=== PATIENT | female | born 1960 ===

== ENCOUNTER 2018-02-15 11:33 | Emergency (ER) | payer OTHER ==
[2018-02-15 11:41] VITALS: RESP 18; O2SAT 100
--- NOTE | 2018-02-15 12:33 | RAD ---
PROCEDURE: Left Foot Radiographs. HISTORY: pain to proximal 1st metatarsal COMPARISON: None. FINDINGS: BONES: Bone alignment and mineralization are normal. There is no acute displaced fracture or bone destruction. There is a prominent plantar calcaneal spur. There is a dorsal calcaneal enthesophyte. JOINTS: Normal. There is an os navicularis. SOFT TISSUES: Normal. OTHER FINDINGS: None. No acute fracture or dislocation IMPRESSION: 1. Os navicularis. 2. No acute fracture or dislocation.
--- NOTE | 2018-02-15 13:10 | C.PDOC ---
History Of Present Illness 57 year old female presents to the ED c/o pain to the medial aspect of her left foot that started 3 days ago. Patient reports she started using new shoes after which she noticed pain and swelling to her left foot. Patient denies fall, injury, trauma, weakness, numbness. Time Seen by Provider: 02/15/18 11:47 Chief Complaint (Nursing): Lower Extremity Problem/Injury History Per: Patient History/Exam Limitations: no limitations Onset/Duration Of Symptoms: Days Current Symptoms Are (Timing): Still Present Recent travel outside of the [place]: No Additional History Per: Patient - Ankle/Foot Description Of Injury: Other Currently Unable To: Bend Or Move Past Medical History Reviewed: Historical Data, Nursing Documentation, Vital Signs Vital Signs: Last Vital Signs Temp 97.4 F L 02/15/18 13:30 Pulse 60 02/15/18 13:30 Resp 18 02/15/18 13:30 BP 123/83 02/15/18 13:30 Pulse Ox 100 02/15/18 14:17 - Medical History PMH: No Chronic Diseases Surgical History: No Surg Hx Family History: States: Unknown Family Hx - Social History Hx Tobacco Use: Yes Hx Alcohol Use: No Hx Substance Use: No - Immunization History Hx Tetanus Toxoid Vaccination: No Hx Influenza Vaccination: No Hx Pneumococcal Vaccination: No Review Of Systems Constitutional: Negative for: Fever, Chills Cardiovascular: Negative for: Chest Pain Respiratory: Negative for: Shortness of Breath Gastrointestinal: Negative for: Abdominal Pain Musculoskeletal: Positive for: Foot Pain Skin: Negative for: Rash Neurological: Negative for: Weakness, Numbness Physical Exam - Physical Exam Appears: Non-toxic, No Acute Distress Skin: Warm, Dry Extremity: Normal ROM, Tenderness (proximal 1st metatarsal left foot, medial aspect foot. ), Capillary Refill (< 2 seconds), No Swelling, Other (no warmth, erythema or swelling) Pulses: Left Dorsalis Pedis: Normal, Right Dorsalis Pedis: Normal Neurological/Psych: Oriented x3, Normal Motor, Normal Sensation Gait: Steady ED Course And Treatment O2 Sat by Pulse Oximetry: 100 (ON RA) Pulse Ox Interpretation: Normal - Other Rad foot left X-Ray: Read By Radiologist Interpretation: IMPRESSION: 1. Os navicularis. 2. No acute fracture or dislocation. Medical Decision Making Medical Decision Making: Impression: left foot pain Plan: * Left foot X-Ray * Motrin 600 mg PO * Shahab bandage no fx on xray. d/c with nsaids,. shahab bandage and podiatry f/u Disposition Counseled Patient/Family Regarding: Studies Performed, Diagnosis, Need For Followup - Disposition Referrals: Podiatry Clinic [Outside] Disposition: HOME/ ROUTINE Disposition Time: 13:09 Condition: GOOD Additional Instructions: Use tee venda as para soporte ,. Eliminar a la hora de acostarse. Ibuprofeno para el dolor Use zapatos de apoyo. COLD se comprime a pie 2-3 veces al da carolynn 20 minutos. Seguimiento con podologa. Wear shahab bandage for support,. Remove at bedtime. Ibuprofen for pain. Wear supportive shoes. COld compresses to foot 2-3 times a day for 20 minutes. Follow up with podiatry. 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 - Scribe Statement The provider has reviewed the documentation as recorded by the Scribe Douglas Gutierrez All medical record entries made by the Scribe were at my direction and personally dictated by me. I have reviewed the chart and agree that the record accurately reflects my personal performance of the history, physical exam, medical decision making, and the department course for this patient. I have also personally directed, reviewed, and agree with the discharge instructions and disposition.
[2018-02-15 13:31] VITALS: BP 123/83; PULSE 60; TEMP 97.4
== END 2018-02-15 13:31 | disposition home or self-care (01) ==
LOC: C.ER 11:33
DX: S93.602A Unspecified sprain of left foot, initial encounter (principal); X58.XXXA Exposure to other specified factors, initial encounter

== ENCOUNTER 2018-06-13 12:31 | Emergency (ER) | payer OTHER ==
[2018-06-13 12:38] VITALS: RESP 16; TEMP 98.2; O2SAT 98
--- NOTE | 2018-06-13 13:06 | C.PDOC ---
History Of Present Illness 58 y/o female present to the ER complaining of left ankle pain for one week. She explains that pain began after a lot of walking. She denies experiencing a fall or trauma of any sort. According to the patient, she did not take any pain medication at home. The patient denies any numbness, tingling or radiating pain. L ANKLE PAIN X 1 WEEK. ONSET AFTER ALOT OF WALKING. NO TRAUMA. NO PAIN MEDS TRIED EXAM NAD EXT LLE: +MILD SWELL MED MALL W NONTEND; AROM WO DIFF; SKIN INTACT NO LESIONS Time Seen by Provider: 06/13/18 12:47 Chief Complaint (Nursing): Lower Extremity Problem/Injury History Per: Patient History/Exam Limitations: no limitations Onset/Duration Of Symptoms: Days Recent travel outside of the [place]: No - Ankle/Foot Alleviating Factor(s): denies: Ice Therapy, OTC Pain Medication Past Medical History Reviewed: Historical Data, Nursing Documentation, Vital Signs Vital Signs: Last Vital Signs Temp 98.2 F 06/13/18 12:34 Pulse 82 06/13/18 14:10 Resp 16 06/13/18 14:10 BP 128/76 06/13/18 14:10 Pulse Ox 98 06/13/18 14:10 - Medical History PMH: No Chronic Diseases Surgical History: Family History: States: Unknown Family Hx - Social History Hx Tobacco Use: Yes Hx Alcohol Use: No Hx Substance Use: No - Immunization History Hx Tetanus Toxoid Vaccination: No Hx Influenza Vaccination: No Hx Pneumococcal Vaccination: No Review Of Systems Except As Marked, All Systems Reviewed And Found Negative. Constitutional: Negative for: Fever Skin: Negative for: Bruising Neurological: Negative for: Weakness, Numbness, Other (tingling ) Physical Exam - Physical Exam Appears: Well, Non-toxic, No Acute Distress Skin: Normal Color, Warm, No Rash, No Other (lesions) Head: Atraumatic, Normacephalic Eye(s): bilateral: Normal Inspection, PERRL, EOMI Ear(s): Bilateral: Normal Nose: Normal Oral Mucosa: Moist Neck: Normal ROM Chest: Symmetrical Cardiovascular: Rhythm Regular, No Murmur Respiratory: Normal Breath Sounds, No Rales, No Rhonchi, No Wheezing, Other ( NARD) Gastrointestinal/Abdominal: Normal Exam, Bowel Sounds, Soft, No Tenderness Extremity: Normal ROM, No Tenderness, Swelling ( +MILD SWELL MED MALLEOUS ) Extremity: Bilateral: Atraumatic, Normal ROM Pulses: Left Dorsalis Pedis: Normal, Right Dorsalis Pedis: Normal Neurological/Psych: Oriented x3 Gait: Steady ED Course And Treatment O2 Sat by Pulse Oximetry: 98 (RA) Pulse Ox Interpretation: Normal Progress Note: Impression: 58 y/o female with left ankle pain. Plan: --Motrin 600 mg PO. --Tylenol 650 mg PO. 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 - Scribe Statement The provider has reviewed the documentation as recorded by the Scribe (Debi Bright) Provider Attestation: All medical record entries made by the Scribe were at my direction and personally dictated by me. I have reviewed the chart and agree that the record accurately reflects my personal performance of the history, physical exam, medical decision making, and the department course for this patient. I have also personally directed, reviewed, and agree with the discharge instructions and disposition.
[2018-06-13 14:10] VITALS: BP 128/76; PULSE 82
--- NOTE | 2018-06-13 14:47 | RAD ---
Date of service: 06/13/2018 PROCEDURE: Left Ankle Radiographs. HISTORY: PAIN COMPARISON: None FINDINGS: BONES: No acute fracture or destructive bony lesion identified. JOINTS: Normal. No osteoarthritis. Ankle mortise maintained. Talar dome intact SOFT TISSUES: Small plantar calcaneal spur noted. OTHER FINDINGS: None. IMPRESSION: Small plantar calcaneal spur. No acute findings.
== END 2018-06-13 14:10 | disposition home or self-care (01) ==
LOC: C.ER 12:31
DX: S93.402A Sprain of unspecified ligament of left ankle, initial encounter (principal); X50.0XXA Overexertion from strenuous movement or load, initial encounter; Y93.01 Activity, walking, marching and hiking; Y92.9 Unspecified place or not applicable

== ENCOUNTER 2018-10-20 13:30 | Emergency (ER) | payer OTHER ==
--- NOTE | 2018-10-20 13:56 | C.PDOC ---
History Of Present Illness 58 y/o female presents to the ED complaining of pain to her left ankle, ongoing for several days. Patient states she walks a lot, which worsens the pain. Denies any recent fall or trauma. Patient also reports worsening swelling. States she was taking Motrin and Tylenol but ran out. Otherwise denies any numbness, paresthesias, or focal weakness. Time Seen by Provider: 10/20/18 13:40 Chief Complaint (Nursing): Lower Extremity Problem/Injury History Per: Family (interpreting for patient) History/Exam Limitations: no limitations Onset/Duration Of Symptoms: Days Current Symptoms Are (Timing): Still Present Past Medical History Reviewed: Historical Data, Nursing Documentation, Vital Signs Vital Signs: Last Vital Signs Temp 97.8 F 10/20/18 13:32 Pulse 83 10/20/18 13:32 Resp 20 10/20/18 13:32 BP 117/78 10/20/18 13:32 Pulse Ox 99 10/20/18 13:32 Surgical History: Family History: States: Unknown Family Hx - Social History Hx Tobacco Use: Yes Hx Alcohol Use: No Hx Substance Use: No - Immunization History Hx Tetanus Toxoid Vaccination: No Hx Influenza Vaccination: No Hx Pneumococcal Vaccination: No Review Of Systems Constitutional: Negative for: Fever Cardiovascular: Negative for: Chest Pain Respiratory: Negative for: Shortness of Breath Gastrointestinal: Negative for: Abdominal Pain Musculoskeletal: Positive for: Other (Left ankle pain). Negative for: Foot Pain Skin: Negative for: Rash, Lesions, Bruising Neurological: Negative for: Weakness, Numbness Physical Exam - Physical Exam Appears: Well, Non-toxic, No Acute Distress Skin: Warm, Dry, No Rash, No Ecchymosis Extremity: Normal ROM, Tenderness (to the lateral and medial malleoli of left ankle; No tenderness of the foot), No Swelling, Other (No erythema or increased warmth, skin intact) Pulses: Left Dorsalis Pedis: Normal, Right Dorsalis Pedis: Normal Neurological/Psych: Oriented x3, Normal Motor, Normal Sensation Gait: Steady ED Course And Treatment O2 Sat by Pulse Oximetry: 99 (RA) Pulse Ox Interpretation: Normal - Other Rad Left ankle x-ray X-Ray: Interpreted by Me, Viewed By Me Interpretation: (-) acute fracture or dislocation Medical Decision Making Medical Decision Making: Impression: Left ankle pain Plan: --Left ankle x-ray --800 mg PO Motrin Pt re-eval. States feeling much better. Given RX for Motrin. Understands and agrees to immediately return to the ER if having increased swelling, pain, numbness/tingling, change in color or sensation, or any other concerni ng/worsening, new or continued symptoms. Understands and agrees to remove case/splint if having any of these sxs and see ortho/ER quickly. Pt agrees to make appt with ortho for 1-2 days from now. States will call [facility] for appointments. Disposition Counseled Patient/Family Regarding: Studies Performed, Diagnosis, Need For Followup - Disposition Referrals: [facility] [Outside] [facility] [Outside] Disposition: HOME/ ROUTINE Disposition Time: 14:40 Condition: IMPROVED Additional Instructions: JACQUELYN CUMMINGS, thank you for letting us take care of you today. Your provider was Tatum Kothari MD and you were treated for LT KNEE PAIN/SWOLLEN. The emergency medical care you received today was directed at your acute symptoms. If you were prescribed any medication, please fill it and take as directed. It may take several days for your symptoms to resolve. Return to the Emergency Department if your symptoms worsen, do not improve, or if you have any other problems. Please contact your doctor or call one of the physicians/clinics you have been referred to that are listed on the Patient Visit Information form that is included in your discharge packet. Bring any paperwork you were given at discharge with you along with any medications you are taking to your follow up visit. Our treatment cannot replace ongoing medical care by a primary care provider outside of the emergency department. [facility] care today. If you had an X-Ray or CT scan: A Radiologist will review the ED reading if any change in treatment is needed we will contact you. If you had a blood, urine, or wound culture: It will take several days for the results, if any change in treatment is needed we will contact you. If you had an STI test: It will take 48 hours for the results. Please call after 1 week if you have not heard back. Prescriptions: Ibuprofen [Motrin Tab] 800 mg PO TID PRN #30 tab PRN Reason: Pain, Moderate (4-7) Instructions: Chronic Pain (DC), Joint Pain Forms: [facility] (Malagasy), Gen Discharge Inst Malagasy - POA Present On Arrival: None - Clinical Impression Clinical Impression: Chronic pain of left ankle - Scribe Statement The provider has reviewed the documentation as recorded by the Joey Velásquez Provider Attestation: All medical record entries made by the Shandaibandrew were at my direction and personally dictated by me. I have reviewed the chart and agree that the record accurately reflects my personal performance of the history, physical exam, medical decision making, and the department course for this patient. I have also personally directed, reviewed, and agree with the discharge instructions and disposition.
[2018-10-20 15:04] VITALS: BP 120/72; PULSE 82; RESP 18; TEMP 98.1; O2SAT 100
--- NOTE | 2018-10-20 15:26 | RAD ---
PROCEDURE: Left Ankle Radiographs. HISTORY: pain/swelling COMPARISON: None available FINDINGS: BONES: No acute displaced fracture. Small calcaneal enthesophyte/heel spur. JOINTS: No dislocation. SOFT TISSUES: Marked soft tissue swelling, greatest medially. No evidence of radiopaque foreign body. OTHER FINDINGS: None. IMPRESSION: Marked soft tissue swelling, greatest medially. No acute displaced fracture or dislocation identified. If symptoms persist or if there is clinical concern, x-ray follow-up in 7-10 days should be considered.
== END 2018-10-20 15:04 | disposition home or self-care (01) ==
LOC: C.ER 13:30
DX: M25.572 Pain in left ankle and joints of left foot (principal); G89.29 Other chronic pain